=== PATIENT | male | born 1990 | race Caucasian/White ===

== ENCOUNTER 2018-04-17 19:34 | Emergency (ER) | payer SELFPAY ==
[2018-04-17] MEDS ORDERED: Ketorolac 60 MG/2 ML SDV IM ONE (19:49)
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
--- NOTE | 2018-04-18 10:35 | CR ---
EXAM DATE: 04/17/18 PATIENT'S AGE: 28 Patient: FLAVIA ROCHA Facility: [place], [place] Site . Site : 1990 Study: XRay Shoulder Right [id number]/24/2018 8:30:24 PM Ordering Physician: Doctor Wilde Final Report: INDICATION: Pain after fall COMPARISON: None available. TECHNIQUE: The right shoulder was examined with AP internal, axillary, and outlet views for a total of three views. FINDINGS: The osseous structures are in anatomic alignment without fracture or dislocation. There is anatomic alignment of the humeral head and glenoid. The acromioclavicular joint is normal in appearance on the AP view. The visualized chest is clear. IMPRESSION: NORMAL RIGHT SHOULDER. Dictated by Fredi Rolle MD @ Apr 17 2018 9:00PM (Electronic Signature) Report Signed by Proxy. CARLOS ALBERTO
--- NOTE | 2018-04-18 10:37 | CR ---
EXAM DATE: 04/17/18 PATIENT'S AGE: 28 Patient: FLAVIA ROCHA Facility: [place], [place] Site . Site : 1990 Study: XRay Shoulder Right clavicle [id number]/24/2018 8:30:44 PM Ordering Physician: Doctor Wilde Final Report: HISTORY: Pain after fall COMPARISON: Right shoulder from today FINDINGS: The right clavicle is examined with AP and cranially angulated views. There is widening of the acromioclavicular joint and a 100 percent inferior displacement of the acromion on the cranially angulated view, not evident on the AP view of the clavicle or of the shoulder. Findings are that of a 3rd degree acromioclavicular joint separation. The clavicle is intact with no sign of fracture. The visualized portions of the right shoulder and upper chest are normal in appearance. IMPRESSION: FINDINGS OF A 3RD DEGREE ACROMIOCLAVICULAR JOINT SEPARATION, SEEN CLEARLY ONLY ON THE CRANIALLY ANGULATED VIEW. Dictated by Fredi Rolle MD @ Apr 17 2018 9:02PM (Electronic Signature) Report Signed by Proxy. CARLOS ALBERTO
== END 2018-04-17 21:41 | disposition home or self-care (01) ==
LOC: EDSEX 19:34 → MW.ED 19:34
DX: S43.101A Unspecified dislocation of right acromioclavicular joint, initial encounter (principal); W10.9XXA Fall (on) (from) unspecified stairs and steps, initial encounter; Y92.098 Other place in other non-institutional residence as the place of occurrence of the external cause
CPT/HCPCS: 73000; 73030; 96372; 99283; J1885

== ENCOUNTER 2018-04-22 21:43 | Emergency (ER) | payer OTHER ==
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
[2018-04-22] MEDS ORDERED: Sodium Chloride 0.9% 1,000 ML IV ONE (22:08)
[2018-04-22 22:41] LABS: CHLORIDE,CL 106 mmol/L (98-107); SODIUM,NA 139 mmol/L (136-148)
[2018-04-23] MEDS ORDERED: Iopamidol 755 MG/ML 200 ML Multipack Bottle IVPUSH ONE (00:26)
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
== END 2018-04-23 02:00 | disposition home or self-care (01) ==
LOC: MW.ED 21:43
DX: M25.561 Pain in right knee (principal); M25.511 Pain in right shoulder; R07.81 Pleurodynia; V89.2XXA Person injured in unspecified motor-vehicle accident, traffic, initial encounter
CPT/HCPCS: 70450; 71045; 71260; 72125; 73030; 73562; 74177; 80053; 85025; 93005; 96360; 99285; G0390; J7040; Q9967; 99284